=== PATIENT | male | born 1965 | race Caucasian/White ===

== ENCOUNTER → 2019-05-24 10:40 | Outpatient (BNVA) | payer BC, SELFPAY | PROVIDERS: Visit Provider Nurse Practitioner Family | DX: S62.514A Nondisplaced fracture of proximal phalanx of right thumb, initial encounter for closed fracture (principal); X58.XXXA Exposure to other specified factors, initial encounter | CPT/HCPCS: 73130 ==

== ENCOUNTER 2024-06-09 22:31 | Inpatient (IN) | payer OTHER, SELFPAY ==
--- NOTE | 2024-06-09 22:33 | XRR_ITS ---
PROCEDURE INFORMATION: Exam: XR Chest Exam date and time: 06/09/2024 10:49 PM Age: 59 years old Clinical indication: Chest pressure; C/O chest pain; Additional info: Cp TECHNIQUE: Imaging protocol: Radiologic exam of the chest. Views: 1 view. COMPARISON: No relevant prior studies available. FINDINGS: Lungs: Unremarkable. No consolidation. Pleural spaces: Unremarkable. No pleural effusion. No pneumothorax. Heart/Mediastinum: Unremarkable. No cardiomegaly. Bones/joints: Unremarkable. XR/XR chest 1V portable [id number] IMPRESSION: No acute findings.
[2024-06-09 22:35] VITALS: BP 167/91; PULSE 81; RESP 16; TEMP 36.7; O2SAT 99
--- NOTE | 2024-06-09 22:37 | ECG_ITS ---
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 Measurements Intervals [place] Rate: 73 P: 58 [place]: 177 QRS: -55 QRSD: 91 T: 69 QT: 356 QTc: 394 Interpretive Statements SINUS RHYTHM Nonspecific ST changes No previous ECG available for comparison Electronically Signed On 06-10-2024 09:53:57 CDT by Teresa Muller M.D. [id number] [id number]
[2024-06-09 23:05] LABS: Basophils # 0.1 10^3/uL (0.0-0.1); Basophils % 0.6 %; Eosinophils # 0.2 10^3/uL (0.0-0.8); Eosinophils % 2.3 %; Lymphocytes # 2.3 10^3/uL (0.8-4.8); Lymphocytes % 26.6 %; Mean Corpuscular HGB Conc 34.1 g/dL (30-55); Mean Corpuscular Hemoglobin 28.1 pg (27-33); Mean Corpuscular Volume 82.4 fl (82-101); Mean Platelet Volume 10.2 fL (7.4-10.4); Monocytes # 0.7 10^3/uL (0.2-0.9); Monocytes % 7.6 %; Neutrophils % 62.7 %; Nucleated Red Blood Cells % 0 %; Platelet Count 125 10^3/cmm (157-399); Red Blood Count 5.95 10^6/uL (3.85-5.65); White Blood Count 8.77 10^3/uL (3.29-11.43)
[2024-06-09 23:19] LABS: INR 0.81 (0.8-1.2)
[2024-06-09 23:27] LABS: Alanine Aminotransferase 20 U/L (0-41); Albumin Level 4.3 g/dL (3.5-5.2); Alkaline Phosphatase 120 U/L (40-130); Anion Gap 15.8 (5-19); Aspartate Amino Transferase 35 U/L (0-40); Blood Urea Nitrogen 16 mg/dL (8-23); Calcium 9.1 mg/dL (8.5-10.5); Carbon Dioxide 23 mmol/L (22-29); Chloride 106 mmol/L (98-107); Creatinine Clr Calc Pharmacy 120.4969; Globulin 2.1 g/dL (1.3-4.6); Glomerular Filtration Rate 98.3 mL/min (90-130); Glucose 179 mg/dL (65-115); Lipase 30 U/L (13-60); Osmolality Calculated 298 mOsm/kg (285-295); Potassium 3.8 mmol/L (3.5-5.1); Sodium 141 mmol/L (136-145); Total Bilirubin 0.4 mg/dL (0.15-1.2); Total Protein 6.4 g/dL (6.6-8.7)
[2024-06-09 23:28] LABS: Troponin(5th) Baseline 219 ng/L (0-15)
--- NOTE | 2024-06-09 23:29 | ECG_ITS ---
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 Measurements Intervals [place] Rate: 74 P: 52 DE: 186 QRS: -42 QRSD: 91 T: 55 QT: 375 QTc: 416 Interpretive Statements SINUS RHYTHM Myocardial infarct, inferior, ? old Left anterior fascicular block no longer present ST (T wave) deviation no longer present Electronically Signed On 06-10-2024 09:53:20 CDT by Teresa Muller M.D. [id number] [id number]
--- NOTE | 2024-06-09 23:30 | W.ED.CHESTPA ---
HPI - Chest Pain General: Chief Complaint: Chest Pain Stated Complaint: Chest Pain,L Arm pain Time Seen by Provider: 06/09/24 22:34 Source: patient Mode of arrival: ambulatory Limitations: no limitations History of Present Illness: 59-year-old male who states that he has been having chest pain since this morning. States been a sharp pain in the center of his chest has been intermittent in nature. Has had some pain in his left arm as well. He denies any vomiting or nausea. He denies any shortness of breath or worsening improving factors. Does have a history of hypertension states he is prediabetic and has a strong family history of heart disease. Associated symptoms: Deny abdominal pain, dyspnea, fever(s), nausea or vomiting Related Data Home Medications ?Medication ?Instructions ?Recorded ?Confirmed lisinopril 10 mg tablet 10 mg PO DAILY 05/24/19 08/05/21 Allergies Allergy/AdvReac Type Severity Reaction Status Date / Time prednisone Allergy ALGY-Rash Verified 06/09/24 22:41 Review of Systems Const: Denies: fever(s), chills, body aches or change in appetite ENMT: Denies: throat pain or dental pain Card: Reports: chest pain Resp: Denies: dyspnea GI: Denies: abdominal pain, nausea, vomiting or diarrhea Musc: Denies: neck pain or back pain Skin/Breast: Denies: rash Neuro: Denies: headache(s) PFSH ED PFSH: Social History Smoking and tobacco/nicotine status: never used tobacco/nicotine Alcohol intake: current Substance/Drug Use: never Physical Exam Const: COMMON NORMALS: no acute distress, patient oriented x3 and healthy appearing HENMT: COMMON NORMALS: normocephalic and atraumatic HEAD & SCALP: normocephalic and atraumatic Eye: COMMON NORMALS: conjunctivae normal CONJUNCTIVA: Yes conjunctivae normal Neck/C-Spine: COMMON NORMALS: full ROM and supple Chest: COMMONS NORMALS: normal inspection of the chest Resp: COMMON NORMALS: normal respiratory effort, No retractions, No use of accessory muscles and clear to auscultation bilaterally AUSCULTATION: clear to auscultation bilaterally Cardio: COMMON NORMALS: regular rate, regular rhythm and No murmurs present (Cardio) RATE: regular rate RHYTHM: regular rhythm GI: COMMON NORMALS: Normal to inspection, nondistended, normoactive bowel sounds present, Soft to palpation, non-tender and no masses PALPATION: Yes Soft to palpation Extremity: COMMON NORMALS: normal to inspection and full ROM Neuro: COMMON NORMALS: patient oriented x3, moves all extremities and no focal motor deficits Psych: COMMON NORMALS: mental status grossly normal, Normal thought process present and cooperative THOUGHT PROCESS: Normal thought process present Skin: COMMON NORMALS: no rashes or lesions noted and no wounds GENERAL SKIN EXAM: no rashes or lesions noted Course Vital Signs: Vital signs: Vital Signs Temperature 98.1 F 06/09/24 22:35 Pulse Rate 81 06/09/24 22:35 Respiratory Rate 16 06/09/24 22:35 Blood Pressure 167/91 06/09/24 22:35 Pulse Oximetry 99 06/09/24 22:35 MDM - Chest Pain Medical Decision Making Patient presents for chest pain initial troponin here is is elevated he has been chest pain-free here EKG shows no signs of ST elevation did speak to hospitalist along with bottom precipitator operator will give dose Lovenox admit for NSTEMI Medical Records I reviewed the patient's medical records. Lab Data I reviewed the patient's lab results. 06/09/24 22:55 06/09/24 22:55 Radiology Impressions Chest X-Ray 06/09/24 22:33 IMPRESSION: No acute findings. Laboratory Results WBC 8.77 10^3/uL (3.29-11.43) 06/09/24 22:55 RBC 5.95 10^6/uL (3.85-5.65) H 06/09/24 22:55 Hgb 16.70 g/dL (11.27-16.99) 06/09/24 22:55 Hct 49.0 % (37-53) 06/09/24 22:55 MCV 82.4 fl (82-101) 06/09/24 22:55 MCH 28.1 pg (27-33) 06/09/24 22:55 MCHC 34.1 g/dL (30-55) 06/09/24 22:55 RDW 12.0 % (12.1-15.1) L 06/09/24 22:55 Plt Count 125 10^3/cmm (157-399) L 06/09/24 22:55 MPV 10.2 fL (7.4-10.4) 06/09/24 22:55 Neut % (Auto) 62.7 % 06/09/24 22:55 Lymph % (Auto) 26.6 % 06/09/24 22:55 Howard % (Auto) 7.6 % 06/09/24 22:55 Eos % (Auto) 2.3 % 06/09/24 22:55 Baso % (Auto) 0.6 % 06/09/24 22:55 Neut # (Auto) 5.50 10^3/uL (1.8-7.7) 06/09/24 22:55 Lymph # (Auto) 2.3 10^3/uL (0.8-4.8) 06/09/24 22:55 Howard # (Auto) 0.7 10^3/uL (0.2-0.9) 06/09/24 22:55 Eos # (Auto) 0.2 10^3/uL (0.0-0.8) 06/09/24 22:55 Baso # (Auto) 0.1 10^3/uL (0.0-0.1) 06/09/24 22:55 Nucleated RBC % (auto) 0 % 06/09/24: Nucleated RBCs # 0.0 /100WBC 06/09/24 22:55 PT 11.80 SECONDS (12.1-14.9) L 06/09/24 22:55 INR 0.81 (0.8-1.2) 06/09/24 22:55 Sodium 141 mmol/L (136-145) 06/09/24 22:55 Potassium 3.8 mmol/L (3.5-5.1) 06/09/24 22:55 Chloride 106 mmol/L (98-107) 06/09/24 22:55 Carbon Dioxide 23 mmol/L (22-29) 06/09/24 22:55 Anion Gap 15.8 (5-19) 06/09/24 22:55 BUN 16 mg/dL (8-23) 06/09/24 22:55 Creatinine 0.8 mg/dL (0.7-1.2) 06/09/24 22:55 GFR Calculation 98.3 mL/min (90-130) 04/19/25 22:55 Glucose 179 mg/dL (65-115) H 06/09/24 22:55 Calculated Osmolality 298 mOsm/kg (285-295) H 06/09/24 22:55 Calcium 9.1 mg/dL (8.5-10.5) 06/09/24 22:55 Total Bilirubin 0.4 mg/dL (0.15-1.2) 06/09/24 22:55 AST 35 U/L (0-40) 06/09/24 22:55 ALT 20 U/L (0-41) 06/09/24 22:55 Alkaline Phosphatase 120 U/L (40-130) 06/09/24 22:55 Troponin T Baseline 219 ng/L (0-15) H* 06/09/24 22:55 Total Protein 6.4 g/dL (6.6-8.7) L 06/09/24 22:55 Albumin 4.3 g/dL (3.5-5.2) 06/09/24 22:55 Globulin 2.1 g/dL (1.3-4.6) 06/09/24 22:55 Lipase 30 U/L (13-60) 06/09/24 22:55 All radiology interpretation(s) finalized by discharge EKG Data EKG 1: I personally reviewed and interpreted this EKG as follows: EKG interpretation date: 06/09/24 EKG interpretation time: 22:37 Interpretation: nsr hr [address] elevation qrs 91 qtc 382 EKG 2: I personally reviewed and interpreted this EKG as follows: EKG interpretation date: 06/09/24 EKG interpretation time: 23:29 Interpretation: nsr hr [address] elevation qrs 91 qtc 402 Discharge Plan Discharge Patient Disposition: Admitted As Inpatient Clinical Impression: Non-ST elevation [place] (NSTEMI) Condition: Stable Coding Level of Care Code ED 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
[2024-06-09 23:49] VITALS: BP 143/92; PULSE 79; RESP 21; O2SAT 98
[2024-06-09] MEDS: aspirin 81 mg Chew Tablet 324 MG PO (23:52)
[2024-06-09] MEDS: enoxaparin 100 mg/mL Syringe SUBCUT (23:53)
[2024-06-10] VITALS (7 sets, daily range): BP systolic 101–166; BP diastolic 66–107; PULSE 70–87; RESP 15–24; TEMP 36.4–36.8; O2SAT 96–99
--- NOTE | 2024-06-10 00:20 | USCV_ITS ---
Sebastian Trujillo Age: 59 Gender: M : 1965 Exam Date: 06/10/2024 08:31 Ordering Phys: Saurabh Grissom MD Technologist: Gabo Soria Exam Location: [facility] [place] Indication: nstemi BP: 138 / 98 HR: 79 Rhythm: Sinus Technical Quality: Adequate MEASUREMENTS (Male / Female) Normal Values 2D ECHO LV Diastolic Diameter PLAX 4.3 cm 4.2 - 5.9 / 3.9 - 5.3 cm IVS Diastolic Thickness 1.2 cm 0.6 - 1.0 / 0.6 - 0.9 cm IVS Systolic Thickness 1.6 cm LVPW Diastolic Thickness 1.9 cm 0.6 - 1.0 / 0.6 - 0.9 cm LVPW Systolic Thickness 2.3 cm LVOT Diameter 2.0 cm LV Ejection Fraction 2D Teich 60.4 % LV Ejection Fraction MOD 4C 56.4 % LV Ejection Fraction MOD 2C 53.6 % LV Ejection Fraction 2C AL 53.0 % LA Diameter 3.6 cm RA Systolic Volume 4C AL 37.3 ml RA Systolic Volume 4C MOD 36.2 ml LA Sys Volume AL 43.8 cm cubed LA Sys Volume Index AL 18.5 cm cubed/m squared Aorta at Sinotubular Diameter 2.6 cm IVC Diameter 2.0 cm M-MODE LA Ao Ratio MM 1.3 AV Cusp Separation MM 2.1 cm DOPPLER AV Peak Velocity 93.0 cm/s LVOT Peak Velocity 71.0 cm/s AV Area Cont Eq vti 2.6 cm squared AV Area Cont Eq pk 2.5 cm squared MV Peak Velocity 110.0 cm/s MV Area PHT 4.2 cm squared Mitral E to A Ratio 0.8 TV Peak Velocity 215.0 cm/s TR Peak Velocity 240.0 cm/s TR Peak Gradient 23.0 mmHg TR Mean Velocity 204.0 cm/s TR Mean Gradient 17.4 mmHg TR Velocity Time Integral 58.6 cm PV Peak Velocity 84.0 cm/s RV Ejection Time 0.2 s FINDINGS Left Ventricle Left ventricle is normal in size. LV systolic function is normal with EF of 50 to 55%. Moderate hypokinesis of inferolateral and anterolateral bravo. Grade 1 diastolic dysfunction. Right Ventricle Normal in size and function. Right Atrium Normal in size Left Atrium Normal in size Mitral Valve Structurally normal mitral valve. Mild mitral regurgitation Aortic Valve Structurally normal aortic valve. No significant stenosis or regurgitation. Tricuspid Valve Insufficient TR jet to evaluate RVSP Pulmonic Valve Not well visualized Pericardium Normal Aorta Normal in size IVC Appears to be normal CONCLUSIONS LV systolic function is normal with EF of 50-55%. Above- mentioned regional wall motion abnormalities Grade 1 diastolic dysfunction. Mild mitral regurgitation. No comparison studies are available. Jorge Thompson MD (Electronically Signed) Final Date: 11 June 2024 08:49 S
--- NOTE | 2024-06-10 00:21 | P.HP_ITS ---
Providers/Chief Complaint 2 Admitting Physician: Saurabh Grissom MD Chief Complaint: Chest Pain,L Arm pain History of Present Illness Sebastian Trujillo is a 59 year old male with a past medical history of hypertension, who presents [facility] for chest pain. Patient reports a chronic history of intermittent chest pain, which she has chalked up to acid reflux, however however has been having chest pain frequently this morning, in the center of his chest, traveling down to his left arm, no nausea, no vomiting, no diaphoresis, reports a family history of CAD, due to increased severity of chest pain he came to the ER for evaluation Review of Systems 2 Card: Reports: chest pain Medications/Allergies Home Medications ?Medication ?Instructions ?Recorded ?Confirmed ?Last Taken ?Type lisinopril 10 mg tablet 10 mg PO DAILY 05/24/1907/22 Unknown History Allergies Allergy/AdvReac Type Severity Reaction Status Date / Time prednisone Allergy ALGY-Rash Verified 06/09/24 22:41 PFSH Acute 2 PFSH: Social History Smoking and tobacco/nicotine status: never used tobacco/nicotine Alcohol intake: current Substance/Drug Use: never Vitals/I&O/Wt Last Vital Signs Temp 98.1 F 06/09/24 22:35 Pulse 79 06/09/24 23:49 Resp 21 H 06/09/24 23:49 BP 143/92 06/09/24 23:49 Pulse Ox 98 06/09/24 23:49 O2 Del Method Room Air 06/09/24 23:49 06/09/24 06/09/24 06/10/24 14:59 22:59 06:59 Intake Total 0 / 0 Balance 0 / 0 Weight last 48 hrs Weight 99.79 kg Physical Exam 2 Const: COMMON NORMALS: no acute distress and patient oriented x3 HENMT: COMMON NORMALS: normocephalic HEAD & SCALP: normocephalic Resp: COMMON NORMALS: normal respiratory effort, No retractions, No use of accessory muscles and clear to auscultation bilaterally AUSCULTATION: clear to auscultation bilaterally Cardio: COMMON NORMALS: regular rate, regular rhythm, S1 normal heart sound present and S2 normal heart sound present RATE: regular rate RHYTHM: r egular rhythm HEART SOUNDS: S1 normal heart sound present and S2 normal heart sound present GI: COMMON NORMALS: Normal to inspection, nondistended, normoactive bowel sounds present, Soft to palpation, non-tender, No hepatosplenomegaly present, no masses and no bruits PALPATION: Yes Soft to palpation and Yes No hepatosplenomegaly present Extremity: COMMON NORMALS: no calf tenderness and no pedal edema Neuro: COMMON NORMALS: patient oriented x3, CN's II-XII intact bilaterally and moves all extremities Psych: COMMON NORMALS: mental status grossly normal Data 06/09/24 22:55 06/09/24 22:55 A&P Assessment and plan (1) Non-ST elevation [place] (NSTEMI): Plan NSTEMI, chest pain - Baseline troponin 219 - Initial EKG showed mild ST depressions in anterior leads - Currently chest pain is minimal Plan - Moved to cardiac stepdown unit - Has received aspirin 325 - Load with Plavix 600 mg - Continue aspirin, statin, Coreg - Therapeutic Lovenox - Cardiac echo - Cardiology consulted - Will consider nitro drip based on clinical progress - Full code - Lovenox for DVT prophylaxis - A1c, lipid panel PDMP PDMP Reviewed: Not Reviewed Attestations 2 Medical Necessity Statement*: Patient requires hospitalization, inpatient, greater than 2 midnights, for NSTEMI, chest pain Diagnoses Non-ST elevation TN (NSTEMI) I21.4
[2024-06-10 00:59] LABS: NT Pro B Type Natriuretic Pept 619 pg/mL (0-125)
[2024-06-10] MEDS: clopidogrel 300 mg Tablet 600 MG PO (01:08)
[2024-06-10] MEDS: carvedilol 3.125 mg Tablet PO ×3 (01:08→18:41)
[2024-06-10] MEDS: atorvastatin 40 mg Tablet PO ×2 (01:08→20:29)
[2024-06-10] MEDS: pantoprazole 40 mg SDV IVP ×2 (01:09→12:13)
[2024-06-10 01:23] LABS: Troponin 5 2HR 280.6 ng/L (0-15); Troponin 5 2HR Delta 61.6 ABS# (0-10)
[2024-06-10 01:24] LABS: Estmated Average Glucose 126
[2024-06-10 01:26] LABS: Chol HDL Ratio 4.56 mg/dL (1.0-5.00); Cholesterol 164 mg/dL (0-200); HDL Cholesterol 36 mg/dL (60-100); LDL Cholesterol Calculated 92 mg/dL (50-129); LDL HDL Ratio 2.56 RATIO (0.00-3.22); Thyroid Stimulating Hormone 4.44 uIU/mL (0.27-4.20); Triglycerides 181 mg/dL (0-150)
[2024-06-10 05:03] LABS: Troponin 5 6HR 493.5 ng/L (0-15); Troponin 5 6HR Delta 274.5 ng/L (0-12)
--- NOTE | 2024-06-10 06:37 | ECG_ITS ---
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 Measurements Intervals [place] Rate: 80 P: 58 [place]: 199 QRS: -48 QRSD: 92 T: 57 QT: 376 QTc: 436 Interpretive Statements SINUS RHYTHM INCOMPLETE RIGHT BUNDLE BRANCH BLOCK POSSIBLE INFERIOR MYOCARDIAL INFARCTION , PROBABLY OLD Compared to ECG 06/09/2024 23:29:41 No significant change Electronically Signed On 06-10-2024 09:52:25 CDT by Teresa Muller M.D. [email or web address] [id number]
[2024-06-10] MEDS: aspirin 81 mg EC Tablet PO (07:41)
--- NOTE | 2024-06-10 08:15 | P.CONIM_ITS ---
Providers/Reason For Consult 2 Consulting Physician/Specialty*: Internal medicine/hospitalist Reason for Consult*: NSTEMI Requesting Physician: Dr. Grissom Attending Physician: Saurabh Grissom MD History of Present Illness History of Present Illness Sebastian Trujillo is a 59 year old male with a history of hypertension who presented with intermittent chest pain going on for last couple of weeks. Yesterday late afternoon and early evening the pain was worse, felt like her pressure across the chest. On arrival to the to the ER EKG revealed ST changes in the inferior leads and an elevated Troponins, NSTEMI. Overnight he was managed accordingly with the loading dose of DAPT and 100 mg subcutaneous Lovenox. Currently patient is completely asymptomatic and resting comfortably. No further angina or any heart failure symptoms. His vitals are stable. Risk factors for CAD include hypertension, prediabetic and a family history of coronary disease. Review of Systems 2 Narrative: Detailed 10 point systemic review unremarkable except for as mentioned above in the history of present illness. Medications/Allergies Home Medications ?Medication ?Instructions ?Recorded ?Confirmed ?Last Taken ?Type losartan 50 mg tablet 50 mg PO DAILY 06/10/2405/23 Unknown History meloxicam 15 mg tablet 15 mg PO DAILY 06/10/2405/23 Unknown History Allergies Allergy/AdvReac Type Severity Reaction Status Date / Time prednisone Allergy ALGY-Rash Verified 06/09/24 22:41 Current Medications Generic Name Dose Route Start Last Admin Trade Name Freq PRN Reason Stop Dose Admin Aspirin 81 mg 06/10/24 09:00 06/10/24 07:41 Aspirin 81 Mg Ec Tablet PO 81 mg DAILY DANISHA Administration Atorvastatin Calcium 40 mg 06/10/24 00:52 06/10/24 01:08 Atorvastatin 40 Mg Tablet PO 40 mg BEDTIME DANISHA Administration Carvedilol 3.125 mg 06/10/24 00:52 06/10/24 07:41 Carvedilol 3.125 Mg Tablet PO 3.125 mg BID DANISHA Administration Pantoprazole Sodium 40 mg 06/10/24 00:52 06/10/24 01:09 Pantoprazole 40 Mg Sdv IVP 40 mg Q12H DANISHA Administration PFSH Acute 2 PFSH: Social History Smoking and tobacco/nicotine status: never used tobacco/nicotine Alcohol intake: current Substance/Drug Use: never Vitals/I&O/Wt Last Vital Signs Temp 97.8 F 06/10/24 03:51 Pulse 75 06/10/24 03:51 Resp 18 06/10/24 03:51 BP 138/98 06/10/24 03:51 Pulse Ox 98 06/10/24 03:51 O2 Del Method Room Air 06/10/24 03:51 06/09/24 06/10/24 06/10/24 22:59 06:59 14:59 Intake Total 0 / 0 450 / 450 Balance 0 / 0 450 / 450 Weight last 48 hrs Weight 235 lb Weight 220 lb Physical Exam 2 Const: OTHER: Normal. HENMT: OTHER: H ENMT exam unremarkable. Neck/C-Spine: OTHER: Normal Resp: OTHER: Good air entry bilaterally. No added sounds. Cardio: OTHER: Normal 1st and 2nd heart sounds. No added sounds. GI: OTHER: Soft and nontender abdomen. Bowel sounds audible. Extremity: NARRATIVE EXTREMITY EXAM: No lower extremity edema. Distal pulses palpable. Neuro: OTHER: Grossly intact. Skin: OTHER: Warm and dry. Data 06/09/24 22:55 06/09/24 22:55 A&P Assessment and plan (1) Non-ST elevation [place] (NSTEMI): Plan 59-year-old male patient with a history of hypertension admitted with chest pain, NSTEMI. Clinically he is stable currently no pulmonary edema and no vitals within normal limits. Troponin I significantly elevated Plan: Echocardiogram Cardiac cath with the possibility of angioplasty this morning. Further management depend on the result of cardiac cath. PDMP PDMP Reviewed: Not Reviewed Consult Attestations 2 Medical Necessity Statement: NSTEMI Coding Level of Care Code 89413 Diagnoses Non-ST elevation [place] (NSTEMI) I21.4 Time Spent (min) 25
--- NOTE | 2024-06-10 08:45 | W.PM.OPSUD ---
Surgery/Procedure H&P Update DATE OF PROCEDURE: June 10, 2024 DATE H&P PERFORMED: 06/10/24 H&P UPDATE INFORMATION: I have reviewed H&P completed within last 30 days, I have examined patient prior to procedure and No changes to prior documentation PREOP DIAGNOSIS: NSTEMI PRIMARY INDICATION FOR PROCEDURE: NSTEMI PLANNED PROCEDURE: Left heart cath with possible percutaneous coronary intervention PATIENT REASSESSED PRIOR TO SEDATION, WITH NO CHANGE NOTED: Yes PHYSICAL EXAM: alert, oriented x 3, clear to auscultation bilaterally and regular rate & rhythm AIRWAY EVAL/ANESTHESIA PLAN: normal airway, ASA III, Local Anesthesia, Risks, benefits & alternatives of sedation and/or procedure discussed and Patient agrees to continue as planned ADDITIONAL INFORMATION: Moderate sedation
--- NOTE | 2024-06-10 08:49 | XACV_ITS ---
Exam Room: [facility] Ht: 185 cm Wt: 107 kg BSA: 2.37 m2 Gender: Male : 1965 Any Known Allergies: Other Exam Priority: Routine Procedure(s): Procedure Description: Diagnostic procedure Procedure Description: PCI procedure Procedure Description: Drug Eluting Coronary Stent Procedure Description: PTCA Procedure Description: Miscellaneous Procedure Description: ACT Procedure Description: Coronary Angiography Diagnostic Cath Status: Urgent Diagnostic Findings * Left Main has no significant disease. 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 Mild luminal irregularities. * Mid Circumflex: critical 95-99% stenosis. * Proximal Left Anterior Descending: mild to moderate 40% stenosis, IFEANYI: 3 flow. * Coronary angiography shows right dominance. PCI Status: Urgent PCI Indication: NSTE - ACS Interventional Findings * Procedure detail: We engaged left main artery with XB 3.5 guide catheter. IV heparin was administered to maintain anticoagulation. Run-through wire was used to cross the left circumflex artery stenosis. We predilated the stenosis with 3.5 x 12 mm semicompliant balloon. This was followed by placement of 4.0 x 18 mm resolute Juan David drug-eluting stent. IVUS was performed that showed expansion of the stent however at proximal edge there was still significant residual plaque burden. We decided to place 4.0 x 15 mm overlapping stent proximal to the mid segment stent. The stents were postdilated with 4.0 x 15 mm NC balloon. At this time final angiogram was performed that showed excellent stent expansion, no residual stenosis and IFEANYI-3 flow. Guidewire and guide catheter were removed. Patient left the Counter Person in stable condition. * Proximal Circumflex: 70% stenosis treated with a MDT R JUAN DAVID 4.0X15 JOVANY, and MDT NC EUPHORA RX [id number] BALLOON. 0% residual stenosis, IFEANYI: 3 flow. * Mid Circumflex: 99% stenosis treated with a MDT NC EUPHORA RX [id number] BALLOON, and MDT R JUAN DAVID 4.0X18 JOVANY. 0% residual stenosis, IFEANYI: 3 flow. Conclusions 1. Critical mid left circumflex artery stenosis status post successful revascularization with 2 stents. Mild to moderate proximal LAD stenosis. Will be evaluated with a stress test as outpatient in 1 to 2 months.. 2. Proximal Circumflex was treated with a Drug Eluting Stent, and Balloon. 3. Mid Circumflex was treated with a Balloon, and Drug Eluting Stent. Recommendations * Dual antiplatelet therapy with aspirin and plavix. * High intensity statin therapy. * Outpatient cardiology follow up in 2 weeks. Interventional RX Recommendation: PCI w/o planned CABG Diagnostic RX Recommendation: PCI w/o planned CABG Anticoagulation: Heparin Pressures Phase:Rest AO : 107 / 83 ( 96 ) @ 10:35:00 AM 113 / 84 ( 99 ) @ 10:53:00 AM Clinical Evaluation EBL: 5mL-10mL Procedural Details Procedure Consent Obtained. Current Diagnosis : NSTEMI. Pre-Procedure Time Out. Identified patient by full name and date of as verbalized by the patient/guarantor. Does the consent match the physician's order: Yes. Accurate & Complete Informed Consent: Yes. Inpatient/Outpatient History & Physical on Chart: Yes. If H&P is completed, is and addenduem needed: No; If yes, is the addendum complete: N/A. Visualize and Verify Site with Patient/Guarantor: N/A. Relevant Radiology Images available: Yes. The risks, benefits, and alternatives of sedation and/or procedure were discussed by physician. The patient agrees to continue. Procedure started. [facility] Clinical Fraility Score: 3: Managing Well. Counter Person Indications: ACS > 24 hours/NSTEMI. Chest Pain Symptom Assessment: Typical Angina Symptoms. Cardiovascular Instability: No. Correct patient, site and procedure confirmed by cath team. Current diagnosis: NSTEMI. PERRLA. Strong, equal hand seconds handler bilaterally. Lungs clear x 5 lobes. IV Site on Arrival: 20 gauge in the right wrist was discontinued with cath tip intact d/t being inthe way for the [facility] procedure. A 20 gauge IV was started in the left forearm using aseptic technique. IV Fluids: 0.9% NaCl at KVO. 0 mL infused prior to laborer tan house. Pre Procedural Pulses: bilateral radial was 3+. Oxygen started at 2liters/min via nasal canula. right groin was prepped with chloroprep then draped in the usual sterile fashion. right radial was prepped with chloroprep then draped in the usual sterile fashion. Physician notified. Baseline sample Acquired. HR: 79 BPM. Patient's family unavailable. Equipment: 6F - Radial. Cardiac Cath Pack. ACIST Manifold Kit Model BT 2000. Heparinized Saline (2 units/mL), 1000 mL bag. Physician arrived. Physician scrubbed in. Immediate Pre-Procedure Time Out. Correct Patient: Yes; Correct Procedure: Yes; Correct Site: Yes; Correct Patient Position: Yes; Correct Supplies: Yes; Dried Flammable Prep: Yes; Blood Products Available: N/A. Lidocaine 1% infiltrated to the right radial. Arterial access obtained. A 5 albanian TIG catheter in over the exchagne J wire. Multiple views taken of right coronary artery. Catheter removed over the exchange J wire. 6 albanian XB 3.5 guide catheter was inserted over the exchange J wire. Multiple views taken of left coronary artery. Runthrough guidewire was advanced through the guide catheter to lesion in the mid Circ. Inflation number : 1 A MDT NC EUPHORA RX [id number] BALLOON was prepped and advanced across the Mid CX , then inflated to 8 ENDY for 0:11 seconds. Inflation number: 2 The MDT NC EUPHORA RX 3.85I73XD BALLOON was reinflated across the Mid CX, to 12 ENDY for 0:11 seconds. Inflation number: 3 The MDT NC EUPHORA RX [id number] BALLOON was reinflated across the Mid CX, to 12 ENDY for 0:14 seconds. Balloon out. Results checked. [place] 4.0mm x 18mm stent in, unable to cross, removed intact. Guideliner in over the Runthrough guidewire. Inflation Number : 4 A MDT R JUAN DAVID 4.0X18 JOVANY -Lot Number# [id number]. Exp. was prepped and advanced across the Mid CX. The stent was deployed at 12 ENDY for 0:20 seconds. Stent balloon out over wire. Results checked. Guideliner out over the Runthrough guidewire. IVUS catheter in over the Runthrough guidewire. IVUS measurements of the Mid CX performed. IVUS catheter out over the Runthrough guidewire. Juan David 4.0mm x 15mm stent in, unable to cross, removed intact. Guideliner in over the Runthrough guidewire. Inflation Number : 1 A MDT R JUAN DAVID 4.0X15 JOVANY -Lot Number# [id number] Exp. . was prepped and advanced across the Prox CX. The stent was deployed at 12 ENDY for 0:19 seconds. Stent balloon out over wire. Inflation number : 2 A MDT NC EUPHORA RX [id number] BALLOON was prepped and advanced across the Prox CX , then inflated to 12 ENDY for 0:11 seconds. Inflation number: 3 The MDT NC EUPHORA RX [id number] BALLOON was reinflated across the Prox CX, to 14 ENDY for 0:15 seconds. Inflation number: 4 The MDT NC EUPHORA RX [id number] BALLOON was reinflated across the Prox CX, to 14 ENDY for 0:14 seconds. Balloon out. Guideliner out over the Runthrough guidewire. Results checked. Wire out. ACT drawn. Results out of range HI. Will redraw. Guide catheter out over the exchange J wire. Dr. Thompson scrubbed out. ACT drawn. Results 307 seconds. Therapeutic limits - pre-heparin administration 90-150 seconds and monitoring heparin during a vascular procedure >250 seconds. A TR Band was successful obtaining hemostatsis at the Right Radial artery insertion site. Post Procedure: Pulses reassessed and unchanged. PERRLA. Strong, equal hand seconds handler bilaterally. No VTE prophylaxis required. Medication's Wasted: Lidocaine 1% = 16 mL. Medication's Wasted: Nitro = 49.8 mg. Medication's Wasted: Other = Versed 1 mg. Total IV fluids: 45 mL. PCI Indication: NSTE. Post-op diagnosis: PCI of the Mid CX x one JOVANY and Prox CX x one JOVANY. Complications: none. Estimated blood loss: 5mL-10mL. Responsiveness - Normal response to verbal stimuli; alert and oriented, PERRLA. Airway - Unaffected, no intervention required; spontaneous ventilation. Circulation: W/N/L, pulses unchanged. Nausea/Vomiting: No. Procedure completed. Patient transferred by bed to 1st floor. Vital chart was stopped. Access Site Site: Right Radial artery Sheath Size: 6 Fr Hemostasis Method: TR Band Hemostasis Success: Successful Procedure Medications Start: 9:18 AM Stop: 9:18 AM Medication: Versed Amount: 1 mg Route: I.V. Start: 9:18 AM Stop: 9:18 AM Medication: Fentanyl Amount: 50 mcg Route: I.V. Start: 9:24 AM Stop: 9:24 AM Medication: Versed Amount: 1 mg Route: I.V. Start: 9:25 AM Stop: 9:25 AM Medication: Nitrogylcerin Amount: 200 mcg Route: I.A. Start: 9:28 AM Stop: 9:28 AM Medication: Heparin Amount: 5000 units Route: I.V. Start: 9:36 AM Stop: 9:36 AM Medication: Heparin Amount: 5000 units Route: I.V. Start: 9:39 AM Stop: 9:39 AM Medication: Fentanyl Amount: 25 mcg Route: I.V. Start: 9:52 AM Stop: 9:52 AM Medication: Heparin Amount: 1000 units Route: I.V. Start: 9:53 AM Stop: 9:53 AM Medication: Fentanyl Amount: 25 mcg Route: I.V. Start: 9:57 AM Stop: 9:57 AM Medication: Versed Amount: 1 mg Route: I.V. I, the attending physician, have reviewed and verified all procedure medications. Yes, all medications given per verbal order History/Risk Factors Hypertension: No Dyslipidemia: No Peripheral Arterial Disease (PAD): No Myocardial Infarction (ME): No Obesity: No Renal Disease: No Tobacco Use: Never Prior Interventions PCI: No CABG: No Valve Surgery: No Report Signatures Finalized by Jorge Thompson MD on 06/10/2024 10:45 AM
[2024-06-10] MEDS: clopidogrel 75 mg Tablet PO (08:51)
--- NOTE | 2024-06-10 10:29 | PM.PROC ---
Procedure Note: Date of procedure: 06/10/24 Pre-procedure diagnosis: NSTEMI Post-procedure diagnosis: other (Critical mid left circumflex artery stenosis s/p 2 stents) Procedure: Left main artery is patent. LAD has mild to moderate luminal irregularities. Left circumflex artery has focal 95 to 99% stenosis. This post successful revascularization with 2 stents. RCA is patent. Continue aspirin and plavix Performing Provider: Jorge Thompson Estimated blood loss (mL): 5 Complications: None Condition: stable Disposition: floor Coding Level of Care Code [facility]
--- NOTE | 2024-06-10 12:58 | P.MISC_ITS ---
Miscellaneous Note Purpose of Documentation: Overnight labs and H&P reviewed. Patient underwent PCI this morning with p lacement of 2 stents into the left circumflex. RCA was patent. LAD with mild to moderate luminal irregularities. Patient tolerated the procedure well. No chest pain at this present time.
[2024-06-10] MEDS: pantoprazole DR 40 mg Tablet PO (18:40)
[2024-06-11 03:53] VITALS: BP 132/89; PULSE 89; RESP 17; TEMP 36.6
[2024-06-11 04:01] LABS: Basophils % 0.3 %; Eosinophils # 0.1 10^3/uL (0.0-0.8); Eosinophils % 1.6 %; Hematocrit 47.1 % (37-53); Lymphocytes # 1.9 10^3/uL (0.8-4.8); Lymphocytes % 21.6 %; Mean Corpuscular HGB Conc 33.5 g/dL (30-55); Mean Corpuscular Hemoglobin 27.8 pg (27-33); Mean Corpuscular Volume 82.8 fl (82-101); Mean Platelet Volume 10.3 fL (7.4-10.4); Monocytes # 0.7 10^3/uL (0.2-0.9); Monocytes % 7.7 %; Neutrophils # 6.14 10^3/uL (1.8-7.7); Neutrophils % 68.5 %; Nucleated Red Blood Cells % 0 %; Platelet Count 125 10^3/cmm (157-399); Red Blood Count 5.69 10^6/uL (3.85-5.65); Red Cell Distribution Width 12.2 % (12.1-15.1); White Blood Count 8.97 10^3/uL (3.29-11.43)
[2024-06-11 04:21] LABS: Alanine Aminotransferase 20 U/L (0-41); Albumin Level 3.7 g/dL (3.5-5.2); Alkaline Phosphatase 92 U/L (40-130); Anion Gap 13.8 (5-19); Aspartate Amino Transferase 45 U/L (0-40); Blood Urea Nitrogen 10 mg/dL (8-23); Calcium 8.5 mg/dL (8.5-10.5); Carbon Dioxide 22 mmol/L (22-29); Chloride 104 mmol/L (98-107); Creatinine Clr Calc Pharmacy 141.9768; Globulin 2.2 g/dL (1.3-4.6); Glomerular Filtration Rate 114.6 mL/min (90-130); Glucose 122 mg/dL (65-115); Osmolality Calculated 282 mOsm/kg (285-295); Potassium 3.8 mmol/L (3.5-5.1); Sodium 136 mmol/L (136-145); Total Bilirubin 1.2 mg/dL (0.15-1.2); Total Protein 5.9 g/dL (6.6-8.7)
[2024-06-11 08:00] VITALS: BP 132/87; PULSE 84; RESP 16; TEMP 36.8; O2SAT 98
--- NOTE | 2024-06-11 08:59 | P.PN_ITS ---
<Statement entered by Jorge Thompson M.D - 06/11/24 11:37> Patient was evaluated and cared for in conjunction with an advanced practice practitioner.? I personally examined the patient and reviewed the chart and all pertinent data including imaging, telemetry, and laboratory results.? I discussed the patient in detail with the advanced practice practitioner.? Please see? their note for complete progress note, testing results and agreed upon plan of care for the patient. Subjective 2 Subjective: Patient is status post stent x 2 to the left circumflex. He is doing well without chest pain or shortness of breath. Vitals are stable. Creatinine is normal. He denies any complaints at this time. Vitals/I&O/Wt Last Vital Signs Temp 97.8 F 06/11/24 03:53 Pulse 89 06/11/24 03:53 Resp 17 06/11/24 03:53 BP 132/89 06/11/24 03:53 Pulse Ox 98 06/10/24 16:00 O2 Del Method Room Air 06/10/24 16:00 06/10/24 06/11/24 06/11/24 22:59 06:59 14:59 Intake Total 240 / 360 Balance 240 / 360 Weight last 48 hrs Weight 232 lb 14.4 oz Weight 235 lb Weight 220 lb Physical Exam 2 Narrative: General: No apparent distress, healthy appearing, well nourished HENMT: normoceophalic Neck: No carotid bruit bilaterally Muskuloskeletal: Full ROM Respiratory: Normal respiratory effort, clear to auscultation bilaterally throughout all lung clemons, no use of accessory muscles Cardio: No JVD, regular rate, regular rhythm, S1 S2 normal, no murmurs, peripheral pulses 2+ radial palpated bilaterally GI: Normal to inspection, nondistended Extremities: Full ROM, normal, normal capillary refill, no cyanosis or edema Neuro: Alert and oriented x4, no focal motor deficits Psych: Affect normal, mental status grossly normal Skin: Right radial stick site clean, dry, intact w/o s/s of hematoma Data 06/11/24 03:44 06/11/24 03:44 A&P Assessment and plan (1) Non-ST elevation DC (NSTEMI): Plan 59-year-old male patient with a history of hypertension admitted with chest pain, NSTEMI. Clinically he is stable currently no pulmonary edema and no vitals within normal limits. S/P stenting x2 to the Circ. Recommend continue aspirin and Plavix at least for 1 year, f/u in the clinic in 7-10 days, activity restrictions were given to the patient, continue statin, betablocker, and home medication. Patient may go home from cardiology standpoint. PDMP PDMP Reviewed: Not Reviewed Attestations 2 Medical Necessity Statement*: May go home from cardiology standpoint Coding Level of Care Code Acute Code for [facility] Fwd Diagnoses Non-ST elevation DC (NSTEMI) I21.4
[2024-06-11] MEDS: aspirin 81 mg EC Tablet PO (09:21)
[2024-06-11] MEDS: clopidogrel 75 mg Tablet PO (09:21)
[2024-06-11] MEDS: pantoprazole DR 40 mg Tablet PO (09:21)
[2024-06-11] MEDS: carvedilol 3.125 mg Tablet PO (09:22)
--- NOTE | 2024-06-11 09:23 | PM.DCS ---
Discharge Providers Date of Admission: 06/09/24 23:40 Date of Discharge: June 11, 2024 Attending Provider at Admission: Saurabh Grissom MD Attending Provider at Discharge: Pricila Mccormick MD Consults: Cardiology Primary Care Provider: MAVIS Wood Diagnoses at Discharge Discharge Diagnosis (1) Non-ST elevation KS (NSTEMI): Status: Acute (2) Thrombocytopenia: Status: Acute (3) Elevated AST (SGOT): Status: Acute (4) Hypertension: Status: Chronic (5) Dyslipidemia: Status: Acute (6) Osteoarthritis: Status: Chronic Reason for Visit Reason for Visit: Chest Pain,L Arm pain Brief History: Sebastian Trujillo is a 59 year old male with a past medical history of hypertension, who presents [facility] for chest pain. Patient reports a chronic history of intermittent chest pain, which she has chalked up to acid reflux, however however has been having chest pain frequently this morning, in the center of his chest, traveling down to his left arm, no nausea, no vomiting, no diaphoresis, reports a family history of CAD, due to increased severity of chest pain he came to the ER for evaluation Hospital Course Hospital Course Mr. Trujillo was treated for non-ST elevation KS with anticoagulation, antiplatelet therapy, statin therapy and beta-blockade. Peak troponin was 274.5. He underwent cardiac catheterization on June 10 and was found to have critical left circumflex artery disease as well as stenosis in the LAD. He underwent stent placement and proximal and mid circumflex and will have outpatient follow-up stress testing for the LAD lesion. He will be discharged home on beta-blockade, statin therapy, dual antiplatelet therapy and as needed nitroglycerin. Will continue his losartan. With coronary artery disease meloxicam will need to be held. All of this was discussed with him and his . At discharge vital signs are stable. Cath site was intact in [facility]. Mr Trujillo and his were given an opportunity to ask questions. Discharge Data Studies Completed and Pending Completed Studies During Hospitalization Category Date Time Status CONSTRUCTION PROJECT COORDINATOR request for service Routine Exams 06/10/24 08:49 Completed XR chest 1V portable [id number] Stat Exams 06/09/24 22:33 Completed CV. echo complete* [id number] Stat Ultrasound 06/10/24 00:20 Completed Radiology Impressions Chest X-Ray 06/09/24 22:33 IMPRESSION: No acute findings. ECHO CONCLUSIONS LV systolic function is normal with EF of 50-55%. Above- mentioned regional wall motion abnormalities Grade 1 diastolic dysfunction. Mild mitral regurgitation. No comparison studies are available. Laboratory Results WBC 8.97 10^3/uL (3.29-11.43) 06/11/24 03:44 RBC 5.69 10^6/uL (3.85-5.65) H 06/11/24 03:44 Hgb 15.80 g/dL (11.27-16.99) 06/11/24 03:44 Hct 47.1 % (37-53) 06/11/24 03:44 MCV 82.8 fl (82-101) 06/11/24 03:44 MCH 27.8 pg (27-33) 06/11/24 03:44 MCHC 33.5 g/dL (30-55) 06/11/24 03:44 RDW 12.2 % (12.1-15.1) 06/11/24 03:44 Plt Count 125 10^3/cmm (157-399) L 06/11/24 03:44 MPV 10.3 fL (7.4-10.4) 06/11/24 03:44 Neut % (Auto) 68.5 % 06/11/24 03:44 Lymph % (Auto) 21.6 % 06/11/24 03:44 Jay % (Auto) 7.7 % 06/11/24 03:44 Eos % (Auto) 1.6 % 06/11/24 03:44 Baso % (Auto) 0.3 % 06/11/24 03:44 Neut # (Auto) 6.14 10^3/uL (1.8-7.7) 06/11/24 03:44 Lymph # (Auto) 1.9 10^3/uL (0.8-4.8) 06/11/24 03:44 Jay # (Auto) 0.7 10^3/uL (0.2-0.9) 06/11/24 03:44 Eos # (Auto) 0.1 10^3/uL (0.0-0.8) 06/11/24 03:44 Baso # (Auto) 0.0 10^3/uL (0.0-0.1) 06/11/24 03:44 Nucleated RBC % (auto) 0 % 06/11/24 03:44 Nucleated RBCs # 0.0 /100WBC 06/11/24 03:44 PT 11.80 SECONDS (12.1-14.9) L 06/09/24 22:55 INR 0.81 (0.8-1.2) 06/09/24 22:55 Sodium 136 mmol/L (136-145) 06/11/24 03:44 Potassium 3.8 mmol/L (3.5-5.1) 06/11/24 03:44 Chloride 104 mmol/L (98-107) 06/11/24 03:44 Carbon Dioxide 22 mmol/L (22-29) 06/11/24 03:44 Anion Gap 13.8 (5-19) 06/11/24 03:44 BUN 10 mg/dL (8-23) 06/11/24 03:44 Creatinine 0.7 mg/dL (0.7-1.2) 06/11/24 03:44 GFR Calculation 114.6 mL/min (90-130) 06/11/24 03:44 Glucose 122 mg/dL (65-115) H 06/11/24 03:44 Estimat Average Glucose 126 06/09/24 22:55 Hemoglobin A1c 6.0 % (4.0-6.0) 06/09/24 22:55 Calculated Osmolality 282 mOsm/kg (285-295) L 06/11/24 03:44 Calcium 8.5 mg/dL (8.5-10.5) 06/11/24 03:44 Magnesium 2.0 mg/dL (1.7-2.3) 06/09/24 22:55 Total Bilirubin 1.2 mg/dL (0.15-1.2) 06/11/24 03:44 AST 45 U/L (0-40) H 06/11/24 03:44 ALT 20 U/L (0-41) 06/11/24 03:44 Alkaline Phosphatase 92 U/L (40-130) 06/11/24 03:44 Troponin T Baseline 219 ng/L (0-15) H* 06/09/24 22:55 Troponin T 120 Minute 280.6 ng/L (0-15) H 06/10/24 00:38 Delta Troponin T 61.6 ABS# (0-10) H* 06/10/24 00:38 Troponin T Hi Sens 6Hr 493.5 ng/L (0-15) H 06/10/24 04:28 Troponin T Hi Sens 6Hr Delta 274.5 ng/L (0-12) H* 06/10/24 04:28 NT-Pro-B Natriuret Pep 619 pg/mL (0-125) H 06/09/24 22:55 Total Protein 5.9 g/dL (6.6-8.7) L 06/11/24 03:44 Albumin 3.7 g/dL (3.5-5.2) 06/11/24 03:44 Globulin 2.2 g/dL (1.3-4.6) 06/11/24 03:44 Triglycerides 181 mg/dL (0-150) H 06/09/24 22:25 Cholesterol 164 mg/dL (0-200) 06/09/24 22:25 LDL Cholesterol, Calc 92 mg/dL (50-129) 06/09/24 22:25 HDL Cholesterol 36 mg/dL (60-100) L 06/09/24 22:25 LDL/HDL Ratio 2.56 RATIO (0.00-3.22) 06/09/24 22:25 Cholesterol/HDL Ratio 4.56 mg/dL (1.0-5.00) 06/09/24 22:25 Lipase 30 U/L (13-60) 06/09/24 22:55 TSH 4.44 uIU/mL (0.27-4.20) H 06/09/24 22:25 Procedures Performed Cardiac Catheterization Interventional Findings * Procedure detail: We engaged left main artery with XB 3.5 guide catheter. IV heparin was administered to maintain anticoagulation. Run-through wire was used to cross the left circumflex artery stenosis. We predilated the stenosis with 3.5 x 12 mm semicompliant balloon. This was followed by placement of 4.0 x 18 mm resolute Juan David drug-eluting stent. IVUS was performed that showed expansion of the stent however at proximal edge there was still significant residual plaque burden. We decided to place 4.0 x 15 mm overlapping stent proximal to the mid segment stent. The stents were postdilated with 4.0 x 15 mm NC balloon. At this time final angiogram was performed that showed excellent stent expansion, no residual stenosis and IFEANYI-3 flow. Guidewire and guide catheter were removed. Patient left the Fish Farmer in stable condition. * Proximal Circumflex: 70% stenosis treated with a MDT R JUAN DAVID 4.0X15 JOVANY, and MDT NC EUPHORA RX [id number] BALLOON. 0% residual stenosis, IFEANYI: 3 flow. * Mid Circumflex: 99% stenosis treated with a MDT NC EUPHORA RX [id number] BALLOON, and MDT R JUAN DAVID 4.0X18 JOVANY. 0% residual stenosis, IFEANYI: 3 flow. Conclusions 1. Critical mid left circumflex artery stenosis status post successful revascularization with 2 stents. Mild to moderate proximal LAD stenosis. Will be evaluated with a stress test as outpatient in 1 to 2 months.. 2. Proximal Circumflex was treated with a Drug Eluting Stent, and Balloon. 3. Mid Circumflex was treated with a Balloon, and Drug Eluting Stent. Vitals Last Vital Signs Temp 97.8 F 06/11/24 03:53 Pulse 89 06/11/24 03:53 Resp 17 06/11/24 03:53 BP 132/89 06/11/24 03:53 Pulse Ox 98 06/10/24 16:00 O2 Del Method Room Air 06/10/24 16:00 Discharge Plan Discharge Patient Disposition: Home Condition: Stable Prescriptions: New atorvastatin 40 mg Tablet 40 mg PO BEDTIME Qty: 30 0RF clopidogrel 75 mg Tablet 75 mg PO DAILY Qty: 30 1RF aspirin 81 mg Tablet,Delayed Release (Dr/Ec) 81 mg PO DAILY Qty: 30 0RF carvedilol 3.125 mg Tablet 3.125 mg PO BID Qty: 60 1RF nitroglycerin 0.4 mg Tablet, Sublingual 0.4 mg sublingual Q5M PRN (Reason: Chest Pain) Qty: 25 0RF acetaminophen 500 mg capsule 500 mg PO Q6H PRN (Reason: arthritis pain) Qty: 100 0RF Continued losartan 50 mg tablet 50 mg PO DAILY Discontinued meloxicam 15 mg tablet 15 mg PO DAILY Discharge Orders: Discharge Order (Routine); Ordered 06/11/24 Ordered By: Pricila Mccormick Other Ambulatory Orders: Complete Blood Count w/Auto (Routine) Timeframe: 2 Weeks Location: Determined by Patient Ordered By: Pricila Frase Comprehensive Metabolic Panel (Routine) Timeframe: 2 Weeks Facility: [facility] - Location: Lab - Main Lab Ordered By: Pricila Mccormick Referrals: Jorge Thompson M.D [Physician] - 06/19/24 2:00 pm () Discharge Diet: Cardiac Discharge Activity: Increase activity as tolerated Patient Instructions: Nitroglycerin (By mouth), Acetaminophen (By mouth), Aspirin (By mouth), Atorvastatin (By mouth), Carvedilol (By mouth), Clopidogrel (By mouth), Coronary Angioplasty (DC), Heart Healthy Diet (DC), DASH Eating Plan (DC), Heart Catheterization (DC), Opioid Safety, Post Angiogram Home Care Instructions Activity Restrictions/Additional Instructions: You presented with chest pain and other symptoms suggesting heart attack. Workup in the emergency room revealed what is called a non-ST elevation KS or myocardial infarction. In basic terms this means an artery supplying blood to your heart was blocked. You underwent cardiac catheterization by Dr. Thompsno on June 10. This revealed a critical mid left circumflex artery stenosis that required placement of 2 stents and balloon angioplasty. You also had some stenosis in the proximal left anterior descending artery and plan will be for a cardiac stress test in the outpatient setting in 1 to 2 months for further evaluation. You have been started on dual antiplatelet therapy with aspirin and Plavix due to stent placement. We have also started you on statin therapy and beta-blockade in the form of atorvastatin and carvedilol respectively. At discharge you had borderline low platelets and slightly elevated AST. You will be following up with cardiology in 2 weeks and at that time CBC and CMP have been ordered to follow-up these abnormal labs. In addition to prescriptions for new medications you have been provided a prescription for nitroglycerin to take should you have any recurrent chest pain. If you have persistent chest pain or other concerning symptoms call 911 or come to the emergency room for evaluation. Meloxicam is not recommended in the setting of coronary artery disease so this has been stopped. You can take Tylenol for arthritis pain. Discharge Attestations Time Spent in Discharge Care*: greater than 30 min Quality Metrics Clinical Quality Measures [ Acute Myocardial Infaction { Clinical Trial Participant: No; Contraindication to aspirin: None; Aspirin prescribed; Contraindication to statin: None; Statin prescribed;}] Coding Level of Care Code 89975 Diagnoses Non-ST elevation KS (NSTEMI) I21.4 Thrombocytopenia D69.6 Elevated AST (SGOT) R74.01 Hypertension I10 Dyslipidemia E78.5 Osteoarthritis M19.90
[2024-06-11 10:41] VITALS: BP 132/87; PULSE 84; RESP 16; TEMP 36.8; O2SAT 90
== END 2024-06-11 10:36 | disposition home or self-care (01) | DRG 322 ==
LOC: ER 23:42 → ER IP 23:57 → CSU 06-10 00:14
PROVIDERS: Internal Medicine; Student in an Organized Health Care Education/Training Program; Admitting Provider Family Medicine; Emergency Provider Emergency Medicine; Visit Provider Hospitalist
PROC: 027035Z Dilation of Coronary Artery, One Artery with Two Drug-eluting Intraluminal Devices, Percutaneous Approach (ICD-10-PCS; principal; 2024-06-10 09:00)
PROC: 027035Z Dilation of Coronary Artery, One Artery with Two Drug-eluting Intraluminal Devices, Percutaneous Approach (ICD-10-PCS; 2024-06-10 09:00)
DX: I21.4 Non-ST elevation (NSTEMI) myocardial infarction (principal); D69.6 Thrombocytopenia, unspecified; R74.01 Elevation of levels of liver transaminase levels; I10 Essential (primary) hypertension; E78.5 Hyperlipidemia, unspecified; M19.90 Unspecified osteoarthritis, unspecified site; R73.03 Prediabetes; Z82.49 Family history of ischemic heart disease and other diseases of the circulatory system
CPT/HCPCS: 36415; 71045; 80053; 80061; 83036; 83690; 83735; 83880; 84443; 84484; 85025; 85347; 85610; 92978; 93005; 93306; 93454; 94664; 96372; 96374; 96376; 99152; 99153; 99285; C1725; C1753; C1769; C1874; C1887; C1894; C9600; J1644; J1650; J2250; J2470; J3010; J3490; J7030; J9999; Q9967

== ENCOUNTER → 2024-07-03 10:38 | Outpatient (BNVA) | payer OTHER, SELFPAY | PROVIDERS: PCP Nurse Practitioner Family; Visit Provider Nurse Practitioner Family | DX: R00.2 Palpitations (principal); R94.31 Abnormal electrocardiogram [ECG] [EKG] | CPT/HCPCS: 93005 ==

== ENCOUNTER 2024-07-23 10:08 | Outpatient (CLI) | payer OTHER, SELFPAY ==
--- NOTE | 2024-07-23 10:49 | ECG_ITS ---
[facility] [employer] Test Date: 2024-07-23 Pat Name: Sebastian Trujillo Department: Room: Gender: Male [employer]per: : 1965 Requested By: Rosey Meyers Order Number: [id number] Bishop MD: Jorge Thompson M.D. Interpretive Statements EXERCISE STRESS TEST EXERCISE DATA: The patient was exercised by Donis protocol. Baseline heart rate was 80 beats per minute. Baseline blood pressure was 149/103 millimeters of mercury. Maximal predicted heart rate was 159 beats per minute. Maximum heart rate achieved was 165 which was 103% of the maximum predicted heart rate. Maximum blood pressure was 200/76 millimeters of mercury. Total exercise time was 10 minutes. Maximum METs achieved was 13.5. The reason for ending the test was maximal effort achieved. The patient complained of shortness of breath during the stress test, which then resolved at the end of the test. ELECTROCARDIOGRAM: BASELINE: Showed sinus rhythm, normal axis, no significant ST-T changes at the baseline noted. [] EXERCISE: At the peak exercise level, [] No significant ST-T changes suggestive of ischemia noted. [] RECOVERY: During the recovery period, heart rate dropped appropriately. No significant ST-T changes in the recovery suggestive of ischemia noted. PVCs seen [] CONCLUSION: 1. Exercise capacity is excellent 2. Heart rate response was appropriate 3. Blood pressure response was hypertensive 4. Symptoms not suggestive of ischemia. 5. Electrocardiogram portion of the stress test was not suggestive of ischemia. 6. Nuclear scan will be documented separately. Electronically Signed On 08-09-2024 10:19:00 CDT by Jorge Thompson M.D. [email or web address]
--- NOTE | 2024-07-23 10:49 | NMCV_ITS ---
NM pascual perf SPECT r/s* [id number] Sebastian Trujillo Age: 59 Gender: M : 1965 Exam Date: 07/23/2024 11:03 Ordering Phys: Rosey Meyers Technologist: REBEKAH Irizarry Exam Location: [facility] Indications: cp STRESS TEST Please see separate stress test report in [facility] for full findings IMAGE PROTOCOL Rest/Stress 1 Radiopharmaceutical Dose (mCi) Administration Site Administered by Rest: Tc-99m 10.5 IV Montserrat Snider ALUMINUM MOLDER Sestamibi Stress:Tc-99m 32.8 IV Montserrat Snider, ALUMINUM MOLDER Sestamibi Rest: 23-Jul-2024 60 Discovery 630 Stress: 23-Jul-2024 30 Discovery 630 Radiopharmaceutical was injected at 96 % maximum heart rate. Images obtained in supine and prone position. SPECT RESULTS Technical Quality: Good Raw Data Analysis: Normal Image Corrections: No attenuation or motion correction applied Summed Stress Score: 8 Summed Rest Score: 0 Summed Difference Score: 8 PERFUSION FINDINGS There us medium sized area of mostly reversible perfusion defect seen in the inferior and inferolateral bravo. This is consistent with medium sized area of ischemia in inferior and inferolateral bravo. Attenuation artifact can not be ruled out. FUNCTIONAL RESULTS (calculated via Gated SPECT) Stress Image LV EF (%): 67 Stress EDV (mL):116 TID: 1.04 Stress ESV (mL):38 FUNCTIONAL FINDINGS: There is normal left ventricular systolic function. IMPRESSIONS 1. Abnormal myocardial perfusion imaging with medium sized area of ischemia seen in inferior and inferolateral bravo. Some improvement seen on prone imaging. Attenuation artifact can not be ruled out. Clinical correlation is required 2. LV systolic function is normal Jorge Thompson MD (Electronically Signed) Final Date: 30 July 2024 10:25 S
[2024-07-23 12:39] VITALS: BP 150/99; PULSE 97
== END 2024-07-23 10:09 | disposition home or self-care (01) ==
LOC: CDL 10:08
PROVIDERS: PCP Nurse Practitioner Family; Visit Provider Nurse Practitioner Family
DX: I21.4 Non-ST elevation (NSTEMI) myocardial infarction (principal); R93.1 Abnormal findings on diagnostic imaging of heart and coronary circulation
CPT/HCPCS: 36415; 78452; 93017; A9500

== ENCOUNTER 2025-01-28 09:31 | Outpatient (CLI) | payer OTHER, SELFPAY ==
[2025-01-28 09:54] LABS: Hematocrit 52.6 % (37-53); Hemoglobin 18.00 g/dL (11.27-16.99); Mean Corpuscular HGB Conc 34.2 g/dL (30-55); Mean Corpuscular Hemoglobin 27.9 pg (27-33); Mean Corpuscular Volume 81.6 fl (82-101); Nucleated Red Blood Cells % 0 %; Platelet Count 138 10^3/cmm (157-399); Red Blood Count 6.45 10^6/uL (3.85-5.65); White Blood Count 7.58 10^3/uL (3.29-11.43)
[2025-01-28 10:20] LABS: Alanine Aminotransferase 18 U/L (0-41); Albumin Level 4.4 g/dL (3.5-5.2); Alkaline Phosphatase 99 U/L (40-130); Anion Gap 16.2 (5-19); Aspartate Amino Transferase 14 U/L (0-40); Blood Urea Nitrogen 16 mg/dL (8-23); Calcium 9.2 mg/dL (8.5-10.5); Carbon Dioxide 22 mmol/L (22-29); Chloride 107 mmol/L (98-107); Cholesterol 194 mg/dL (0-200); Globulin 2.8 g/dL (1.3-4.6); Glucose 145 mg/dL (65-115); HDL Cholesterol 39 mg/dL (60-100); Osmolality Calculated 296 mOsm/kg (285-295); Potassium 4.2 mmol/L (3.5-5.1); Sodium 141 mmol/L (136-145); Total Protein 7.2 g/dL (6.6-8.7); Triglycerides 133 mg/dL (0-150)
== END 2025-01-28 09:32 | disposition home or self-care (01) ==
LOC: LAB 09:31
PROVIDERS: PCP Nurse Practitioner Family; Visit Provider Internal Medicine
DX: I10 Essential (primary) hypertension (principal); I25.10 Atherosclerotic heart disease of native coronary artery without angina pectoris; E78.5 Hyperlipidemia, unspecified
CPT/HCPCS: 36415; 80053; 80061; 85025